=== PATIENT | female | born 1995 | race Caucasian/White ===

== ENCOUNTER 2017-03-18 09:53 | Emergency (ER) | payer OTHER ==
--- NOTE | ~2017-03-18 | ER ---
PATIENT'S NAME: STEWART FELIX [facility] AGE: 22 Y [address] ROOM: [place] [id number] LOCATION: [facility] ADMIT DATE: 03/18/2017 ER/Outpatient Report DISCHARGE DATE: 03/18/2017 FAMILY PHYSICIAN: Arturo Hdez MD ATTENDING PHYSICIAN: Mani Parra TIME OF ARRIVAL: 0955 hours. TIME OF EVALUATION: 0955 hours. CHIEF COMPLAINT: Dog bite. HISTORY OF PRESENT ILLNESS: The patient is a 22-year-old female who presents to the emergency department today with a chief complaint of dog bite. She reports she works at the [employer] facility. She was attempting to give the dog some medications when it bit her distal tip of her middle finger on the left. She denies any fevers or chills. No nausea or vomiting. No diarrhea or constipation. It is a sharp pain, currently 8/10 in severity, worse with movement. PAST MEDICAL HISTORY: Asthma. PAST SURGICAL HISTORY: None. SOCIAL HISTORY: The patient denies any tobacco, alcohol, or illicit drug use. ALLERGIES: AMOXICILLIN WHICH CAUSES A RASH. MEDICATIONS: None. REVIEW OF SYSTEMS: All systems are reviewed by myself and are negative with the exception of those discussed in the HPI and Past Medical History. PHYSICAL EXAMINATION: VITAL SIGNS: Weight 74.1 kg. Blood pressure 152/67, pulse 88, respiratory rate 14, temperature 99.1, and oxygen saturation 100% on room air. PATIENT'S NAME: STEWART FELIX [facility] AGE: 22 Y [address] ROOM: [place] [id number] LOCATION: [facility] ADMIT DATE: 03/18/2017 ER/Outpatient Report DISCHARGE DATE: 03/18/2017 FAMILY PHYSICIAN: Arturo Hdez MD ATTENDING PHYSICIAN: Mani Parra GENERAL: The patient is a 22-year-old female who appears stated age, in no acute distress. HEENT: Normocephalic, atraumatic. Pupils are equal, round, and reactive to light. NECK: Supple. There is no nuchal rigidity. CARDIOVASCULAR: Regular rate and rhythm. No murmurs, rubs, or gallops. LUNGS: Clear to auscultation bilaterally. No wheezes, rales, or rhonchi. ABDOMEN: Soft, nontender, and nondistended. No rebound, rigidity, or guarding. MUSCULOSKELETAL: The patient has full range of motion. SKIN: The patient has a puncture wound bite david surrounding the nail of the left middle finger. Sensation is intact. LABORATORY AND X-RAY DATA: X-ray of the left middle finger is obtained. I see no evidence of fracture, dislocation, or foreign body. IMPRESSION: 1. Dog bite with puncture wound to distal tip of the third digit on the left. 2. Initial visit. EMERGENCY DEPARTMENT COURSE: The patient was brought back to the examination room. Seen and evaluated by myself. X-rays were obtained as described above. A digital block was applied to the middle finger. The area was copiously irrigated with soap and water. The wound was explored. I saw no evidence of foreign body. There was no evidence of need for laceration repair. The patient reports she cannot be , "not at all, how can I get ." I have written a prescription for doxycycline for home. Discussed wound care. DISPOSITION: The patient is discharged to home with instructions to follow up with Dr. Hdez in 3 to 5 days. DO LOIS YO/randy /[id number] d: 03/18/17 1305 t: 03/19/17 0908, OUTPATIENT REPORT
== END 2017-03-18 10:59 | disposition disaster alternative care site (69) ==
LOC: GACC 09:53
PROC: 3E0T3BZ Introduction of Anesthetic Agent into Peripheral Nerves and Plexi, Percutaneous Approach (ICD-10-PCS; principal; 2017-03-18)
DX: S61.233A Puncture wound without foreign body of left middle finger without damage to nail, initial encounter (principal); J45.909 Unspecified asthma, uncomplicated; Z88.1 Allergy status to other antibiotic agents; W54.0XXA Bitten by dog, initial encounter; Y92.89 Other specified places as the place of occurrence of the external cause; Y99.0 Civilian activity done for income or pay